=== PATIENT | female | born 1945 | race Caucasian/White ===

== ENCOUNTER 2024-02-06 08:00 | Outpatient (CLI) | payer MEDICARE, BC ==
--- NOTE | 2024-02-06 18:31 | XRAY Report ---
PROCEDURE: Chest 2V INDICATIONS: ACUTE BRONCHITIS TECHNIQUE: 2 views of the chest were acquired. COMPARISON: None. FINDINGS: Surgical changes and devices: None. Lungs and pleura: Mildly prominent interstitium. No dense consolidation or pleural effusion. Mediastinum: Normal heart size Bones and chest wall: Wedging of multiple thoracic vertebral bodies, age indeterminate. IMPRESSION: Mildly prominent interstitium could represent infection versus edema. No dense airspace disease or pl eural effusion identified. Consider future imaging surveillance to assess for resolution. Reviewed by: Hal Manzano MD on 02/06/2024 6:30 PM PDT Approved by: Hal Manzano MD on 02/06/2024 6:30 PM PDT Station ID: [id number]
== END 2024-02-06 23:59 | disposition home or self-care (01) ==
LOC: DI.S 08:00
PROVIDERS: ATTEND Physician Assistant
DX: J20.9 Acute bronchitis, unspecified (principal)